=== PATIENT | female | born 1995 ===

== ENCOUNTER 2018-04-26 08:50 | Inpatient (IN) | payer BC, OTHER ==
[2018-04-26] MEDS: ELECTROLYTE-148 SOLN 1,000 ML IV SCH (08:50)
[2018-04-26] MEDS ORDERED: METOCLOPRAMIDE HCL INJECTION 10 MG/2 ML VIAL IVPUSH ONE (09:15)
[2018-04-26] MEDS ORDERED: METHYLERGONOVINE MALEATE 0.2 MG/1 ML AMP IM PRN (09:23)
[2018-04-26 09:25] VITALS: BMI 30.7
[2018-04-26] MEDS ORDERED: OXYTOCIN 20 UNITS in 0.9% NS 20 UNIT/1,000 ML INFUS.BAG IV ONE (09:31)
--- NOTE | 2018-04-26 09:33 | HP ---
Past Medical History - Primary Care Physician PCP:: Hoa Chaney - Admission Chief Complaint: Spontaneous rupture of membranes. Twin gestation at 37 week. Active Labor History of Present Illness: 22 yo G P EDC History Source: Patient Limitations to Obtaining History: No Limitations - Past Medical History ...: 1 ...LMP: 08/09/17 ... Weeks Gestation by Dates: 37 ...EDC by Dates: 05/16/18 ...EDC by Sono: 05/16/18 - Past Surgical History Past Surgical History: Yes: None Hx Myomectomy: No Hx Transabdominal Cerclage: No - Smoking History Smoking history: Never smoked Have you smoked in the past 12 months: No - Alcohol/Substance Use Hx Alcohol Use: No History of Substance Use: reports: None - Social History Usual Living Arrangement: Yes: With Spouse History of Recent Travel: No Home Medications - Allergies Allergies/Adverse Reactions: Allergies Allergy/AdvReac Type Severity Reaction Status Date / Time No Known Allergies Allergy Verified 04/20/18 22:05 - Home Medications Home Medications: Ambulatory Orders Vitamins (Sjr) - 1 tab PO DAILY 04/20/18 Ibuprofen [Motrin -] 600 mg PO QID #28 tablet 04/29/18 Review of Systems - Review of Systems Constitutional: reports: No Symptoms Eyes: reports: No Symptoms HENT: reports: No Symptoms Neck: reports: No Symptoms Cardiovascular: reports: No Symptoms Respiratory: reports: No Symptoms Gastrointestinal: reports: Abdominal Pain Genitourinary: reports: No Symptoms Breasts: reports: No Symptoms Reported Musculoskeletal: reports: No Symptoms Integumentary: reports: No Symptoms Neurological: reports: No Symptoms Endocrine: reports: No Symptoms Hematology/Lymphatic: reports: No Symptoms Psychiatric: reports: No Symptoms Physical Exam - Maternity Vital Signs: Vital Signs Temperature 98.2 F 04/26/18 09:18 Pulse Rate 82 04/26/18 09:18 Respiratory Rate 20 04/26/18 09:18 Blood Pressure 132/78 04/26/18 09:18 O2 Sat by Pulse Oximetry (%) Constitutional: Yes: Well Nourished, No Distress HENT: Yes: WNL Neck: Yes: WNL Cardiovascular: Yes: WNL Lungs: Clear to auscultation Breast(s): Yes: WNL - Abdominal Exam/OB Fundal Height: 40 Number of Fetuses: Multiple Presentation: Breech, Twins Contractions: Yes Regularity: Regular Category: I Decelerations: None - Vaginal Exam/OB Vaginal Bleediing: Yes Speculum Exam: No Dilatation (cm): 2-3 cm Effacement (%): 100 Amniotic Membrane Status: Ruptured Amniotic Fluid: Yes: Clear Presentation: Mika Breech Station: 0 - Physical Exam Musculoskeletal: Yes: WNL Extremities: Yes: WNL Edema: No Psychiatric: Yes: WNL, Alert, Oriented Hemorrhage Risk Assessment - Risk Factors Medium Risk Factors: Yes: Multiple gestation Risk Score: 1 Risk Level: Medium Risk Problem List - Problems (1) Twin gestation in third trimester Code(s): O30.003 - TWIN PREG, UNSP NUM PLCNTA & AMNIO SACS, THIRD TRIMESTER (2) Spontaneous rupture of membranes Code(s): RGU8356 - Assessment/Plan IUP at 37 week Twin gestation SROM Vertex//Transversepresentation PLan Section
[2018-04-26] MEDS ORDERED: ceFAZolin SODIUM 1 GM VIAL ONE (09:41)
[2018-04-26] MEDS ORDERED: morphine SULFATE/Preservative Free 0.5 MG/ML (1cc Syringe) ONE (09:41)
[2018-04-26] MEDS ORDERED: AMPICILLIN SODIUM 2 GM VIAL ONE (09:46)
[2018-04-26 09:49] LABS: BASO % 0.1 % (0-2.0); EOS % 0.3 % (0-4.5); HEMATOCRIT 30.4 % (32.4-45.2); HEMOGLOBIN 10.5 GM/dL (10.7-15.3); LYMPH % 19.5 % (8-40); MCH 28.3 pg (25.7-33.7); MCHC 34.5 g/dl (32.0-36.0); MEAN PLT VOLUME 9.4 fl (7.5-11.1); MONO % 7.1 % (3.8-10.2); PLATELET COUNT 273 K/MM3 (134-434); RBC 3.71 M/mm3 (3.60-5.2); WHITE BLOOD COUNT 8.2 K/mm3 (4.0-10.0)
[2018-04-26 10:05] LABS: INR 0.91 (0.83-1.09); PROTHROMBIN TIME (PATIENT) 10.3 SEC (9.7-13.0)
[2018-04-26 10:08] LABS: ACTIVATED PTT 25.8 SECONDS (25.2-36.5)
[2018-04-26 10:10] LABS: ANION GAP 11 MMOL/L (8-16); BLOOD UREA NITROGEN 10 mg/dL (7-18); CALCIUM 8.5 mg/dL (8.5-10.1); CHLORIDE 110 mmol/L (98-107); CO2 19 mmol/L (21-32); CREATININE 0.8 mg/dL (0.55-1.3); GLUCOSE,RANDOM 70 mg/dL (74-106); SODIUM 140 mmol/L (136-145)
[2018-04-26 11:21] LABS: ARTERIAL BLD GAS O2 SATURATION 8.6 % (90-98.9); ARTERIAL BLOOD GAS BASE EXCESS -4.7 meq/l (-2-2); ARTERIAL BLOOD GAS PCO2 62.2 mmHg (35-45); ARTERIAL BLOOD GAS PO2 9.4 mmHg (80-100); ARTERIAL BLOOD GAS pH 7.22 (7.35-7.45)
[2018-04-26 11:24] LABS: ARTERIAL BLD GAS O2 SATURATION 34.8 % (90-98.9); ARTERIAL BLOOD GAS BASE EXCESS -5.2 meq/l (-2-2); ARTERIAL BLOOD GAS PCO2 51.9 mmHg (35-45); ARTERIAL BLOOD GAS PO2 20.7 mmHg (80-100); ARTERIAL BLOOD GAS pH 7.25 (7.35-7.45)
[2018-04-26] MEDS ORDERED: morphine SULFATE/Preservative Free 0.5 MG/ML (1cc Syringe) SPIN ONE (11:27)
[2018-04-26] MEDS ORDERED: ONDANSETRON 4 MG/2 ML VIAL IVPUSH PRN (11:27)
[2018-04-26 11:30] LABS: VENOUS PC02 40.3 mmHg (38-52); VENOUS PH 7.35 (7.32-7.42); VENOUS PO2 32.5 mmHg (28-48)
[2018-04-26 11:31] LABS: VENOUS PC02 46.5 mmHg (38-52); VENOUS PH 7.31 (7.32-7.42); VENOUS PO2 22.7 mmHg (28-48)
[2018-04-26] MEDS ORDERED: OXYTOCIN 20 UNITS in 0.9% NS 20 UNIT/1,000 ML INFUS.BAG IV SCH (12:00)
[2018-04-26] MEDS ORDERED: OXYTOCIN 10 UNITS/ML VIAL ONE (12:19)
[2018-04-26] MEDS: IBUPROFEN 800 MG/8 ML IJ IVPB PRN (14:29)
[2018-04-26] MEDS ORDERED: TUBERCULIN PPD 5 TU/0.1ML SYRINGE (IN PATIENT USE ONLY) ID ONE (18:00)
[2018-04-27] MEDS: IBUPROFEN 800 MG/8 ML IJ IVPB PRN ×2 (05:27→13:25)
--- NOTE | 2018-04-27 08:01 | PN ---
Post Progress Note - Subjective Subjective: 22 yo Para 1 status post primary with twin, seen and examined. She c/o non productive cough. She's afebrile. Post Day: 1 Type of Delivery: Primary C/S Vital Signs: Vital Signs Temperature 99.3 F 04/27/18 05:46 Pulse Rate 70 04/27/18 05:46 Respiratory Rate 20 04/27/18 06:00 Blood Pressure 120/70 04/27/18 05:46 O2 Sat by Pulse Oximetry (%) 99 04/26/18 11:53 Breast Exam: Yes: Soft Incision: Yes: Dressing dry and intact Abdomen/GI: Yes: Abdomen soft Lochia: Yes: Rubra Lochia, amount: Small Extremities: Yes: Calves non-tender Activity: Other (She's out of bed to chair) - Labs Labs: CBC WBC 8.2 K/mm3 (4.0-10.0) 04/26/18 09:25 RBC 3.71 M/mm3 (3.60-5.2) 04/26/18 09:25 Hgb 10.5 GM/dL (10.7-15.3) L 04/26/18 09:25 Hct 30.4 % (32.4-45.2) L 04/26/18 09:25 MCV 82.0 fl (80-96) 04/26/18 09:25 MCH 28.3 pg (25.7-33.7) 04/26/18 09:25 MCHC 34.5 g/dl (32.0-36.0) 04/26/18 09:25 RDW 13.0 % (11.6-15.6) 04/26/18 09:25 Plt Count 273 K/MM3 (134-434) 04/26/18 09:25 MPV 9.4 fl (7.5-11.1) 04/26/18 09:25 Absolute Neuts (auto) 6.0 K/mm3 (1.5-8.0) 04/26/18 09:25 Neutrophils % 73.0 % (42.8-82.8) 04/26/18 09:25 Lymphocytes % 19.5 % (8-40) 04/26/18 09:25 Monocytes % 7.1 % (3.8-10.2) 04/26/18 09:25 Eosinophils % 0.3 % (0-4.5) 04/26/18 09:25 Basophils % 0.1 % (0-2.0) 04/26/18 09:25 Nucleated RBC % 0 % (0-0) 04/26/18 09:25 Problem List - Problems (1) Status post Code(s): Z98.891 - HISTORY OF UTERINE SCAR FROM PREVIOUS SURGERY Assessment/Plan Status post Cough Ambulation Analgesia as needed Continue observation
[2018-04-27 08:08] LABS: BASO % 0.2 % (0-2.0); EOS % 0.2 % (0-4.5); HEMOGLOBIN 9.4 GM/dL (10.7-15.3); LYMPH % 12.4 % (8-40); MCH 27.8 pg (25.7-33.7); MCHC 33.7 g/dl (32.0-36.0); MEAN CELL VOLUME 82.4 fl (80-96); MEAN PLT VOLUME 8.8 fl (7.5-11.1); MONO % 6.7 % (3.8-10.2); NEUT % 80.5 % (42.8-82.8); PLATELET COUNT 217 K/MM3 (134-434); WHITE BLOOD COUNT 8.9 K/mm3 (4.0-10.0)
[2018-04-27] MEDS ORDERED: oxyCODONE HCL 5 MG TABLET PO PRN ×2 (09:23)
[2018-04-27] MEDS ORDERED: BISACODYL 10 MG SUPP.RECT RC PRN (09:23)
[2018-04-27] MEDS ORDERED: DIPHTH,PERTUSS(ACELL),TET 0.5 ML DISP.SYRIN IM ONE (10:00)
--- NOTE | 2018-04-27 10:04 | PN ---
Progress Note, Physician Chief Complaint: day #1 s/p csection with DM spinal - Current Medication List Current Medications: Active Medications Bisacodyl (Dulcolax Suppository -) 10 mg RC PRN PRN PRN Reason: CONSTIPATION Diphenhydramine HCl (Benadryl Injection -) 25 mg IVPUSH Q4H PRN PRN Reason: Pruritis Parenteral Electrolytes (Plasma-Lyte 148 -) 1,000 mls @ 125 mls/hr IV ASDIR ERIKA Last Admin: 04/26/18 08:50 Dose: 125 mls/hr Oxytocin/Sodium Chloride (Normal Saline+20 Units Oxytocin -) 20 unit in 1,000 mls @ 125 mls/hr IV ASDIR ERIKA Ibuprofen (Caldolor Injection -) 800 mg IVPB Q8H PRN PRN Reason: FEVER Last Admin: 04/27/18 05:27 Dose: 800 mg Ibuprofen (Motrin -) 600 mg PO Q4H PRN PRN Reason: PAIN LEVEL 1 - 3 Methylergonovine Maleate (Methergine Injection -) 0.2 mg IM Q4H PRN PRN Reason: Excessive Bleeding (L&D) Ondansetron HCl (Zofran Injection) 4 mg IVPUSH Q4H PRN PRN Reason: NAUSEA Oxycodone HCl (Roxicodone -) 5 mg PO Q4H PRN PRN Reason: PAIN LEVEL 4 - 6 Oxycodone HCl (Roxicodone -) 10 mg PO Q4H PRN PRN Reason: PAIN LEVEL 7 - 10 Multivit/Folic Acid/Iron ( Vitamins (Sjr) -) 1 tab PO DAILY [facility] Simethicone (Mylicon -) 80 mg PO Q4H PRN PRN Reason: GAS - Objective Vital Signs: Vital Signs Temperature 99.3 F 04/27/18 05:46 Pulse Rate 70 04/27/18 05:46 Respiratory Rate 18 04/27/18 10:00 Blood Pressure 120/70 04/27/18 05:46 O2 Sat by Pulse Oximetry (%) 99 04/26/18 11:53 Labs: CBC, BMP 04/27/18 07:00 04/26/18 09:25 INR, PTT INR 0.91 (0.83-1.09) 04/26/18 09:25 Assessment/Plan Doing well- minimal pain, able to ambulate, no complaints of headache/back pain.
[2018-04-27] MEDS: PRENATAL VITAMINS W/ FOLIC ACID TABLET (FP) PO SCH (10:38)
[2018-04-27] MEDS: ELECTROLYTE-148 SOLN 1,000 ML IV SCH (15:09)
[2018-04-27] MEDS: ACETAMINOPHEN 325 MG TABLET (FP) PO PRN (23:50)
[2018-04-27] MEDS: IBUPROFEN 600 MG TABLET (FP) PO PRN (23:50)
[2018-04-28] MEDS: PRENATAL VITAMINS W/ FOLIC ACID TABLET (FP) PO SCH (10:03)
[2018-04-28] MEDS: IBUPROFEN 600 MG TABLET (FP) PO PRN ×3 (10:09→20:28)
[2018-04-28] MEDS: ACETAMINOPHEN 325 MG TABLET (FP) PO PRN ×3 (10:10→20:28)
[2018-04-28] MEDS: SIMETHICONE 80 MG TAB.CHEW (FP) PO PRN ×3 (10:11→20:29)
--- NOTE | 2018-04-28 10:47 | PN ---
Post Progress Note - Subjective Subjective: 22 yo Para 1 ( twin ), seen and evaluated. She's out of bed to chair. Doing well. Post Day: 2 Type of Delivery: Primary C/S Vital Signs: Vital Signs Temperature 98.7 F 04/27/18 21:00 Pulse Rate 70 04/27/18 21:00 Respiratory Rate 20 04/27/18 21:00 Blood Pressure 113/61 04/27/18 21:00 O2 Sat by Pulse Oximetry (%) 99 04/26/18 11:53 Breast Exam: Yes: Soft Uterus: Yes: Fundus Firm Incision: Yes: Dressing dry and intact Abdomen/GI: Yes: Abdomen soft, Tolerating PO Lochia: Yes: Rubra Lochia, amount: Small Extremities: Yes: Calves non-tender Activity: Ambulating - Labs Labs: CBC WBC 8.9 K/mm3 (4.0-10.0) 04/27/18 07:00 RBC 3.40 M/mm3 (3.60-5.2) L 04/27/18 07:00 Hgb 9.4 GM/dL (10.7-15.3) L 04/27/18 07:00 Hct 28.0 % (32.4-45.2) L 04/27/18 07:00 MCV 82.4 fl (80-96) 04/27/18 07:00 MCH 27.8 pg (25.7-33.7) 04/27/18 07:00 MCHC 33.7 g/dl (32.0-36.0) 04/27/18 07:00 RDW 13.0 % (11.6-15.6) 04/27/18 07:00 Plt Count 217 K/MM3 (134-434) D 04/27/18 07:00 MPV 8.8 fl (7.5-11.1) 04/27/18 07:00 Absolute Neuts (auto) 7.2 K/mm3 (1.5-8.0) 04/27/18 07:00 Neutrophils % 80.5 % (42.8-82.8) 04/27/18 07:00 Lymphocytes % 12.4 % (8-40) D 04/27/18 07:00 Monocytes % 6.7 % (3.8-10.2) 04/27/18 07:00 Eosinophils % 0.2 % (0-4.5) 04/27/18 07:00 Basophils % 0.2 % (0-2.0) 04/27/18 07:00 Nucleated RBC % 0 % (0-0) 04/27/18 07:00 Problem List - Problems (1) Status post Code(s): Z98.891 - HISTORY OF UTERINE SCAR FROM PREVIOUS SURGERY Assessment/Plan Status post Ambulation Analgesia as needed Continue observation
[2018-04-28] MEDS ORDERED: SENNOSIDES/DOCUSATE COMBO (SENNA PLUS) TABLET (UD) PO PRN (19:18)
--- NOTE | 2018-04-29 07:41 | PN ---
Post Progress Note - Subjective Subjective: 22 yo status post delivery of twin, seen and evaluated. Doing well. Post Day: 3 Type of Delivery: Primary C/S Vital Signs: Vital Signs Temperature 98.6 F 04/28/18 21:00 Pulse Rate 66 04/28/18 21:00 Respiratory Rate 20 04/28/18 21:00 Blood Pressure 134/89 04/28/18 21:00 O2 Sat by Pulse Oximetry (%) 99 04/26/18 11:53 Breast Exam: Yes: Engorged Uterus: Yes: Fundus below umbilicus Incision: Yes: Other (Steri strip intact) Abdomen/GI: Yes: Abdomen soft, Tolerating PO Lochia: Yes: Rubra Lochia, amount: Small Extremities: Yes: Calves non-tender Perineum: Yes: Intact Activity: Ambulating - Labs Labs: CBC WBC 8.9 K/mm3 (4.0-10.0) 04/27/18 07:00 RBC 3.40 M/mm3 (3.60-5.2) L 04/27/18 07:00 Hgb 9.4 GM/dL (10.7-15.3) L 04/27/18 07:00 Hct 28.0 % (32.4-45.2) L 04/27/18 07:00 MCV 82.4 fl (80-96) 04/27/18 07:00 MCH 27.8 pg (25.7-33.7) 04/27/18 07:00 MCHC 33.7 g/dl (32.0-36.0) 04/27/18 07:00 RDW 13.0 % (11.6-15.6) 04/27/18 07:00 Plt Count 217 K/MM3 (134-434) D 04/27/18 07:00 MPV 8.8 fl (7.5-11.1) 04/27/18 07:00 Absolute Neuts (auto) 7.2 K/mm3 (1.5-8.0) 04/27/18 07:00 Neutrophils % 80.5 % (42.8-82.8) 04/27/18 07:00 Lymphocytes % 12.4 % (8-40) D 04/27/18 07:00 Monocytes % 6.7 % (3.8-10.2) 04/27/18 07:00 Eosinophils % 0.2 % (0-4.5) 04/27/18 07:00 Basophils % 0.2 % (0-2.0) 04/27/18 07:00 Nucleated RBC % 0 % (0-0) 04/27/18 07:00 Problem List - Problems (1) Status post Code(s): Z98.891 - HISTORY OF UTERINE SCAR FROM PREVIOUS SURGERY Assessment/Plan Status post Ambulation Analgesia as needed Continue observation
[2018-04-29 08:02] LABS: BASO % 0.3 % (0-2.0); EOS % 1.1 % (0-4.5); HEMATOCRIT 28.2 % (32.4-45.2); HEMOGLOBIN 9.6 GM/dL (10.7-15.3); LYMPH % 19.6 % (8-40); MCH 28.3 pg (25.7-33.7); MEAN CELL VOLUME 83.1 fl (80-96); MEAN PLT VOLUME 8.3 fl (7.5-11.1); MONO % 8.7 % (3.8-10.2); NEUT % 70.3 % (42.8-82.8); PLATELET COUNT 273 K/MM3 (134-434); RBC 3.39 M/mm3 (3.60-5.2); RDW 13.3 % (11.6-15.6); WHITE BLOOD COUNT 6.1 K/mm3 (4.0-10.0)
[2018-04-29] MEDS: ACETAMINOPHEN 325 MG TABLET (FP) PO PRN ×3 (09:14→21:22)
[2018-04-29] MEDS: SIMETHICONE 80 MG TAB.CHEW (FP) PO PRN ×3 (09:14→21:22)
[2018-04-29] MEDS: IBUPROFEN 600 MG TABLET (FP) PO PRN ×3 (09:14→21:22)
[2018-04-29] MEDS: PRENATAL VITAMINS W/ FOLIC ACID TABLET (FP) PO SCH (09:15)
[2018-04-30 08:03] VITALS: BP 128/87; PULSE 65; TEMP 98.2
[2018-04-30] MEDS: IBUPROFEN 600 MG TABLET (FP) PO PRN ×2 (09:04→14:52)
[2018-04-30] MEDS: PRENATAL VITAMINS W/ FOLIC ACID TABLET (FP) PO SCH (09:04)
[2018-04-30] MEDS: ACETAMINOPHEN 325 MG TABLET (FP) PO PRN ×2 (09:04→14:51)
[2018-04-30] MEDS: SIMETHICONE 80 MG TAB.CHEW (FP) PO PRN ×2 (09:04→14:51)
--- NOTE | 2018-05-01 10:00 | PATH ---
Surgical Pathology Report Patient Name: DARIA MARINO Med. Rec. #: [id number] /Age/Gender: 1995 (Age: 22) / F Account: [id number] Location: [facility] OBS/[employer] SALES REP Taken: 04/26/2018 Received: 04/29/2018 Reported: 05/01/2018 Physicians: Sherice Cameron M.D. Specimen(s) Received PLACENTA,TWIN Clinical History , 37 weeks gestation "twins" Final Diagnosis PLACENTAS, SECTION: DICHORIONIC DIAMNIOTIC SEPARATE DISC TWIN PLACENTAS. PLACENTA A: 463 G THIRD TRIMESTER PLACENTA WITH TRIVASCULAR UMBILICAL CORD AND UNREMARKABLE PLACENTAL MEMBRANES. PLACENTA B: 340 G THIRD TRIMESTER PLACENTA WITH TRIVASCULAR UMBILICAL CORD AND UNREMARKABLE PLACENTAL MEMBRANES. Electronically Signed Jimena Blandon M.D. Gross Description The specimen is received fresh labeled "placenta" are twin placentas comprised of 2 separate discs joined by a dividing membrane. The placenta is designated as twin A (one clamp) and twin B (2 clamps), per surgeon. Placenta A (twin A) weighs 463 gram, 16 x 15 x 1.3 cm placenta with attached membranes and umbilical cord. The attached membranes are clear and translucent and insert eccentrically. The umbilical cord measures 11 cm in length and averages 1.5 cm in diameter. The cord inserts eccentrically, 7 cm. to the nearest margin. No true knots or strictures are identified. Cut surface of the umbilical cord reveals 3 vessels. The surface is de la o-blue with minimal fibrin deposition and appropriate caliber vessels. The maternal surface is red-brown with focal defects. Sectioning reveals red-brown, spongy parenchyma. No lesions are identified. Placenta B (twin B) weighs 340 gram, 15 x 15 x 1.5 cm placenta with attached membranes and umbilical cord. The attached membranes are thin and translucent and insert eccentrically. The umbilical cord measures 15 cm. in length and averages 1.5 cm. in diameter. The cord inserts eccentrically, 5 cm to the nearest margin. No true knots or strictures are identified. Cut surface of the umbilical cord reveals 3 vessels. The surface is de la o-blue with minimal fibrin deposition and appropriate caliber vessels. The maternal surface is red-brown with focal defects. Sectioning reveals red-brown, spongy parenchyma. No lesions are identified. Harness Worker sections are submitted in 7 cassettes as follows: Placenta A: 1- membrane rolls and umbilical cord; 2-3- full thickness sections of placenta; Placenta B: 4- membrane rolls and umbilical cord; 5-6- full thickness sections of placenta; 7- dividing membranes. [email or web address]/04/29/2018 sanml/04/29/2018
== END 2018-04-30 16:50 | disposition home or self-care (01) | DRG 765 ==
LOC: JLDR 08:50 → J3W 13:15
PROVIDERS: ADMIT Obstetrics & Gynecology; ATTEND Obstetrics & Gynecology
PROC: 10D00Z1 Extraction of Products of Conception, Low, Open Approach (ICD-10-PCS; principal; 2018-04-26)
DX: O32.1XX1 Maternal care for breech presentation, fetus 1 (principal); O30.003 Twin pregnancy, unspecified number of placenta and unspecified number of amniotic sacs, third trimester; O32.1XX2 Maternal care for breech presentation, fetus 2; Z3A.37 37 weeks gestation of pregnancy; Z37.2 Twins, both liveborn
CPT/HCPCS: 36415; 36600; 80048; 82803; 85025; 85610; 85730; 86593; 86850; 86900; 86901; 88307-TC; 90715